=== PATIENT | female | born 1945 | race American Indian/Alaskan Native ===

== ENCOUNTER 2021-02-06 11:13 | Day surgery (SDC) | payer MEDICARE, MEDICAID, OTHER ==
[~2021-02-06] VITALS: Ht 152.4 cm; Wt 84.0 kg
[~2021-02-06 11:13] MED LIST: ASPI-1265 PO; FISH12002 PO; GLIM2TAB6 PO
[2021-02-06 11:49] VITALS: BP 155/68
[2021-02-06] MEDS ORDERED: ATOR40TA72 PO (12:17)
[2021-02-06] MEDS ORDERED: AMLO5TAB16 PO (12:17)
[2021-02-06] MEDS ORDERED: LISI20TA28 PO (12:17)
[2021-02-06] MEDS ORDERED: METF750T46 PO (12:17)
[2021-02-06] MEDS ORDERED: HYDR12.55 PO (12:17)
[2021-02-06] MEDS ORDERED: CLOP75TA34 PO (12:17)
[2021-02-06] MEDS ORDERED: LIDOcaine 1%/PF 5ML 10 MG/ML VIAL ONE (14:44)
[2021-02-06] MEDS ORDERED: heparin sodium, porcine/PF 100unit/ml 5ML syringe ONE (14:44)
[2021-02-06] MEDS ORDERED: fentaNYL/PF 50MCG/1 ML 2ML syringe ONE (14:50)
[2021-02-06] MEDS ORDERED: midazolam 1 mg/ML 2ml injection ONE (14:50)
[2021-02-06] MEDS ORDERED: normal saline 1000ml 1,000 ML IV SCH (15:05)
[2021-02-06 15:57] VITALS: BP 149/72
[2021-02-06 16:15] VITALS: BP 108/72
[2021-02-06 16:30] VITALS: BP 153/69
== END 2021-02-06 16:45 | disposition home or self-care (01) ==
LOC: SSTAY O 11:13
PROVIDERS: ATTEND Radiology Diagnostic Radiology
DX: C50.212 Malignant neoplasm of upper-inner quadrant of left female breast (principal); I10 Essential (primary) hypertension; E11.9 Type 2 diabetes mellitus without complications; Z86.73 Personal history of transient ischemic attack (TIA), and cerebral infarction without residual deficits; Z79.01 Long term (current) use of anticoagulants; Z79.84 Long term (current) use of oral hypoglycemic drugs; Z79.899 Other long term (current) drug therapy
CPT/HCPCS: 36415; 36561; 76937; 77001; 85610; 99152; 99153; C1769; C1788; C1894; J1642; J2250; J3010